=== PATIENT | female | born 1975 | race Two or more races ===

== ENCOUNTER 2017-01-02 19:05 | Emergency (ER) | payer OTHER ==
[2017-01-02 19:24] VITALS: BP 132/84; PULSE 59; TEMP 98; BMI 25.3
--- NOTE | 2017-01-02 20:45 | PDOC ---
History of Present Illness - General Chief Complaint: Pain Stated Complaint: HEAD/STOMACH PAIN Time Seen by Provider: 01/02/17 20:42 - History of Present Illness Initial Comments: 01/02/17 21:05 41-year-old female complaining of epigastric pain intermittent for the last 2 days that has not improved. Patient reports pain is worse after eating. Denies increasing pain lately. Patient reports decreased by mouth intake since pain started. Denies urinary symptoms, nausea vomiting diarrhea. Patient reports slight headache. Patient has a past medical history of hypercholesterolemia. Past History - Past Medical History Allergies/Adverse Reactions: Allergies Allergy/AdvReac Type Severity Reaction Status Date / Time No Known Allergies Allergy Verified 01/02/17 19:22 Home Medications: Ambulatory Orders Ondansetron [Ondansetron Odt] 8 mg PO TID #30 tab.rapdis 10/11/15 Oxycodone HCl/Acetaminophen [Percocet 5-325 mg Tablet] 1 tab PO Q6H #20 tablet MDD 4 10/11/15 Famotidine [Pepcid -] 20 mg PO BID #14 tablet 01/02/17 - Suicide/Smoking/Psychosocial Hx Smoking History: Never smoked Review of Systems - Review of Systems Able to Perform ROS?: Yes Is the patient limited Slovenian proficient: No Constitutional: No: Symptoms Reported, See HPI, Chills, Diaphoresis, Fever, Loss of Appetite, Malaise, Night Sweats, Weakness, Weight Stable, Unintentional Wgt. Loss, Unexplained wgt Loss, Other ABD/GI: Yes: Abdominal cramping. No: Symptoms Reported, See HPI, Abdominal Distended, Abd. Pain w/ defecation, Blood Streaked Bowels, Constipated, Diarrhea , Difficulty Swallowing, Nausea, Poor Appetite, Poor Fluid Intake, Rectal Bleeding, Vomiting, Indigestion, Tarry Stools, Other : No: Symptoms Reported, See HPI, Burning, Dysuria, Discharge, Frequency, Flank Pain, Hematuria, Incontinence, Pain, Urgency, Testicular Mass, Testicular Swelling, Lesions, Testicular Pain, Other Neurological: Yes: Headache *Physical Exam - Vital Signs Last Vital Signs Temp Pulse Resp BP Pulse Ox 98 F 59 L 18 132/84 100 01/02/17 19:22 01/02/17 19:22 01/02/17 19:22 01/02/17 19:22 01/02/17 19:22 - Physical Exam General Appearance: Yes: Appropriately Dressed Respiratory/Chest: positive: Lungs Clear, Normal Breath Sounds Cardiovascular: positive: Regular Rhythm, Regular Rate Gastrointestinal/Abdominal: positive: Normal Bowel Sounds, Tender (epigastric area), Soft Musculoskeletal: positive: Normal Inspection Extremity: positive: Normal Capillary Refill, Normal Inspection, Normal Range of Motion Integumentary: positive: Normal Color, Dry, Warm Neurologic: positive: Fully Oriented, Alert, Normal Mood/Affect Heart Score/ECG Review - ECG Intrepretation Rhythm: Regular Rhythm Comment:: 01/02/17 22:40 sinus bradycardia with sinus arrythmia: 46bpm ED Treatment Course - LABORATORY CBC & Chemistry Diagram: 01/02/17 22:00 01/02/17 22:03 Progress Note - Progress Note Progress Note: A: abdominal pain P: cbc cmp Ua urine gallbladder US: neg L renal cortical cyst. (discussed with patient) Medical Decision Making - Medical Decision Making 01/02/17 23:44 EKG: sinus bradycardia. patient reports exercising and physically active. 01/02/17 23:46 patient reports feeling better. will d/c home/. *DC/Admit/Observation/Transfer Diagnosis at time of Disposition: Gastritis Qualifiers: Gastritis type: unspecified gastritis Chronicity: acute Gastritis bleeding: without bleeding Qualified Code(s): K29.00 - Acute gastritis without bleeding; K29.00 - Acute gastritis without bleeding - Discharge Dispostion Disposition: HOME - Prescriptions Prescriptions: Famotidine [Pepcid -] 20 mg PO BID #14 tablet - Referrals Referrals: Alissa Linder MD [Primary Care Provider] - Call tomorrow - Patient Instructions Printed Discharge Instructions: DI for Gastroesophageal Reflux Disease (GERD) Additional Instructions: take pepcid as prescribed. follow up with your doctor as soon as possible. return to the ER if symptoms worsen.
[2017-01-02] MEDS ORDERED: FAMOTIDINE 20 MG/50 ML IVPB 50 ML IVPB ONE ×2 (20:57→21:56)
--- NOTE | 2017-01-02 21:20 | PDOC ---
*Physical Exam - Vital Signs Last Vital Signs Temp Pulse Resp BP Pulse Ox 98 F 59 L 18 132/84 100 01/02/17 19:22 01/02/17 19:22 01/02/17 19:22 01/02/17 19:22 01/02/17 19:22 ED Treatment Course - LABORATORY CBC & Chemistry Diagram: 01/02/17 22:00 01/02/17 22:03 Medical Decision Making - Medical Decision Making 01/03/17 07:04 I reviewed the case of the mid-level practitioner and was available for consultation while in the emergency department *DC/Admit/Observation/Transfer Diagnosis at time of Disposition: Gastritis Qualifiers: Gastritis type: unspecified gastritis Chronicity: acute Gastritis bleeding: without bleeding Qualified Code(s): K29.00 - Acute gastritis without bleeding - Discharge Dispostion Disposition: HOME - Prescriptions Prescriptions: Famotidine [Pepcid -] 20 mg PO BID #14 tablet - Referrals Referrals: Alissa Linder MD [Primary Care Provider] - Call tomorrow - Patient Instructions Printed Discharge Instructions: DI for Gastroesophageal Reflux Disease (GERD) Additional Instructions: take pepcid as prescribed. follow up with your doctor as soon as possible. return to the ER if symptoms worsen.
[2017-01-02 21:36] LABS: URINE APPEARANCE CLEAR; URINE BILIRUBIN NEGATIVE (NEGATIVE); URINE BLOOD 2+ (NEGATIVE); URINE COLOR STRAW; URINE GLUCOSE (UA) NEGATIVE (NEGATIVE); URINE KETONE NEGATIVE (NEGATIVE); URINE NITRITE NEGATIVE (NEGATIVE); URINE PROTEIN NEGATIVE (NEGATIVE); URINE UROBILINOGEN NEGATIVE mg/dL (0.2-1.0)
[2017-01-02 21:47] LABS: URINE MUCUS FEW; URINE RBC 1 /hpf (0-3); URINE WBC 1 /hpf (3-5)
[2017-01-02 22:11] LABS: BASOPHIL 1.1 % (0-2.0); EOSINOPHIL 3.3 % (0-4.5); MCH 26.9 pg (25.7-33.7); MCHC 33.5 g/dl (32.0-36.0); MEAN CELL VOLUME 80.3 fl (80-96); MEAN PLT VOLUME 8.5 fl (7.5-11.1); NEUTROPHILS 42.9 % (42.8-82.8); PLATELET COUNT 215 K/MM3 (134-434); RDW 15.2 % (11.6-15.6); WHITE BLOOD COUNT 3.2 K/mm3 (4.0-10.0)
[2017-01-02 22:35] LABS: URINE LEUK ESTERASE Negative (NEGATIVE)
[2017-01-02 22:41] LABS: ALBUMIN 3.2 g/dl (3.4-5.0); ALK PHOS 81 U/L (45-117); ANION GAP 6 (8-16); BILIRUBIN,TOTAL 0.3 mg/dL (0.2-1.0); CALCIUM 8.5 mg/dL (8.5-10.1); CO2 27 mmol/L (21-32); CREATININE 0.6 mg/dL (0.55-1.02); GLUCOSE,RANDOM 84 mg/dL (74-106); SGOT/AST 18 U/L (15-37); SGPT/ALT 16 U/L (12-78); TOT PROT 6.5 g/dl (6.4-8.2)
--- NOTE | 2017-01-03 13:51 | EKG ---
Test Reason : Blood Pressure : / mmHG Vent. Rate : 046 BPM Atrial Rate : 046 BPM P-R Int : 192 ms QRS Dur : 082 ms QT Int : 448 ms P-R-T Axes : 058 037 040 degrees QTc Int : 392 ms SINUS BRADYCARDIA WITH MARKED SINUS ARRHYTHMIA OTHERWISE NORMAL ECG NO PREVIOUS ECGS AVAILABLE CLINICAL CORRELATION IS RECOMMENDED Confirmed by KARL THURMAN MD ([id number]) on 01/03/2017 1:50:53 PM Referred By: Confirmed By:KARL THURMAN MD
== END 2017-01-03 00:17 | disposition home or self-care (01) ==
LOC: JER 19:05
PROC: 3E033GC Introduction of Other Therapeutic Substance into Peripheral Vein, Percutaneous Approach (ICD-10-PCS; principal; 2017-01-02)
DX: K29.00 Acute gastritis without bleeding (principal); E78.00 Pure hypercholesterolemia, unspecified
CPT/HCPCS: 36415; 76705-TC; 80053; 81003; 81015; 83690; 84703; 85025; 93005; 93010; 96365; 99282-25

== ENCOUNTER 2017-03-19 17:34 | Emergency (ER) | payer OTHER ==
[2017-03-19 17:37] VITALS: BP 130/82; PULSE 88; TEMP 98.5; BMI 25.3
[2017-03-19] MEDS ORDERED: KETOROLAC TROMETHAMINE 60 MG/2 ML VIAL IM ONE (18:07)
--- NOTE | 2017-03-19 18:07 | PDOC ---
History of Present Illness - General Chief Complaint: Cold Symptoms Stated Complaint: HEADACHE Time Seen by Provider: 03/19/17 18:01 History Source: Patient Exam Limitations: No Limitations - History of Present Illness Initial Comments: 03/19/17 18:01 Patient is a [41-year-old female, no significant medical history currently on no medication presents with sudden onset of generalized pain, tactile fever, headache Yesterday. Denies any nausea vomiting or diarrhea.] Past Medical History: [Denies]. Allergies: No known allergies Medications: [None] Family History: Non-contributory Social History: Denies smoking, alcohol use, or IVDU Review of Systems GENERAL/CONSTITUTIONAL: [Tactile Fever, chills. No weakness. No weight change.] HEAD, EYES, EARS, NOSE AND THROAT: [No change in vision. No ear pain or discharge. No sore throat. ] CARDIOVASCULAR: [No chest pain or shortness of breath.] RESPIRATORY: [No cough, wheezing, or hemoptysis.] GASTROINTESTINAL: [No nausea, vomiting, diarrhea or constipation. No rectal bleeding.] GENITOURINARY: [No dysuria, frequency, or change in urination.] MUSCULOSKELETAL: [No joint or muscle swelling or pain. No neck or back pain.] SKIN AND BREASTS: [No rash or easy bruising.] NEUROLOGIC: [Generalized headache, vertigo, loss of consciousness, or loss of sensation.] PSYCHIATRIC: [No depression or anxiety.] ENDOCRINE: [No increased thirst. No abnormal weight change.] HEMATOLOGIC/LYMPHATIC: [No anemia, easy bleeding, or history of blood clots.] ALLERGIC/IMMUNOLOGIC: [No hives or skin allergy. No latex allergy.] Physical Exam: GENERAL: [The patient is awake, alert, and fully oriented, in no acute distress. ] HEAD: [Normal with no signs of trauma.] EYES: [Pupils equal, round and reactive to light, extraocular movements intact, sclera anicteric, conjunctiva clear.] ENT: [Ears normal, nares patent with no inflammation, oropharynx clear without exudates. Moist mucous membranes. No uvula deviation] NECK: [Normal range of motion, supple without lymphadenopathy, JVD, or masses.] LUNGS: [Breath sounds equal, clear to auscultation bilaterally. No wheezes, and no crackles.] HEART: [Regular rate and rhythm, normal S1 and S2 without murmur, rub or gallop. ] ABDOMEN: [Soft, nontender, normoactive bowel sounds. No guarding, no rebound. No masses. No bruising or abrasions] MUSCULOSKELETAL: [Normal range of motion, no edema. No clubbing or cyanosis. No cords, erythema, or tenderness. No CVA Tenderness with fist.] NEUROLOGICAL: [Cranial nerves II through XII grossly intact. Normal speech, normal gait.] SKIN: [Warm, Dry, normal turgor, no rashes or lesions noted.] Past History - Past Medical History Allergies/Adverse Reactions: Allergies Allergy/AdvReac Type Severity Reaction Status Date / Time No Known Allergies Allergy Verified 03/19/17 17:37 Home Medications: Ambulatory Orders Oseltamivir Phosphate [Tamiflu -] 75 mg PO BID #10 capsule 03/19/17 CVA: No COPD: No DVT: No Dementia: No - Suicide/Smoking/Psychosocial Hx Smoking History: Never smoked Hx Alcohol Use: No Drug/Substance Use Hx: No Substance Use Type: None *Physical Exam - Vital Signs Last Vital Signs Temp Pulse Resp BP Pulse Ox 98.5 F 88 20 130/82 100 03/19/17 17:35 03/19/17 17:35 03/19/17 17:35 03/19/17 17:35 03/19/17 17:35 Medical Decision Making - Medical Decision Making 03/19/17 19:19 A/P: Patient here for evaluation of influenza-type illness to Tylenol prior to arrival still with headache. I have given patient Toradol 60 mg with good result influenza is negative however patient presents with clinical signs of influenza will DC patient home on Tamiflu, follow-up with PMD in 2 days if symptoms persist or worsen. If any increased headache nausea vomiting or other concerns return to ER *DC/Admit/Observation/Transfer Diagnosis at time of Disposition: Influenza-like symptoms - Discharge Dispostion Disposition: HOME Condition at time of disposition: Stable Admit: No - Prescriptions Prescriptions: Oseltamivir Phosphate [Tamiflu -] 75 mg PO BID #10 capsule - Referrals Referrals: Alissa Linder MD [Primary Care Provider] - - Patient Instructions Printed Discharge Instructions: Influenza (Alternative Therapy) Additional Instructions: Motrin as needed for headache, increase fluid intake. If headache persists, any neurological deficits, nausea vomiting, or any other concerns return immediately to ER Follow-up with primary care doctor in 2 days if symptoms persist - Post Discharge Activity Forms/Work/School Notes: Back to Work
[2017-03-19] MEDS ORDERED: KETOROLAC TROMETHAMINE 60 MG/2 ML VIAL ONE (18:10)
== END 2017-03-19 19:22 | disposition home or self-care (01) ==
LOC: JERFT 17:34
DX: J11.1 Influenza due to unidentified influenza virus with other respiratory manifestations (principal)
CPT/HCPCS: 87804; 99281-25

== ENCOUNTER 2017-12-07 17:08 | Emergency (ER) | payer OTHER ==
--- NOTE | 2017-12-07 17:29 | PDOC ---
Rapid Medical Evaluation Chief Complaint: Cold Symptoms Time Seen by Provider: 12/07/17 17:25 Medical Evaluation: Allergies Allergy/AdvReac Type Severity Reaction Status Date / Time No Known Allergies Allergy Verified 03/19/17 17:37 12/07/17 17:26 CC: Fever, cough, pain with inspiration HPI: Pt is a 42 YO female who states over the past 3 days she has had a cough, fever, myalgias. I have performed a brief in- person evaluation of this patient. Pertinent Physical Findings: Skin: Clear Lungs: Clear Heart: RRR Abdomen: pain in LUQ, no guarding Neuro: Alert Psych: Appropriate affect I have ordered: basic labs The patient will proceed to: Main ED for further evaluation Discharge Disposition - Diagnosis Respiratory illness - Referrals - Patient Instructions - Post Discharge Activity
[2017-12-07 17:32] VITALS: BP 128/78; PULSE 81; TEMP 98; BMI 26.5
[2017-12-07] MEDS ORDERED: ALBUTEROL SO4 2.5/IPRATROPIUM 0.5 INH SOL 3 ML VIAL.NEB. NEB ONE ×2 (18:36→18:38)
[2017-12-07] MEDS ORDERED: ACETAMINOPHEN 500 MG TABLET (FP) PO ONE (18:36)
--- NOTE | 2017-12-07 18:36 | PDOC ---
History of Present Illness - General Chief Complaint: Cold Symptoms Stated Complaint: PAIN Time Seen by Provider: 12/07/17 17:25 Past History - Past Medical History Allergies/Adverse Reactions: Allergies Allergy/AdvReac Type Severity Reaction Status Date / Time No Known Allergies Allergy Verified 12/07/17 17:26 Home Medications: Ambulatory Orders Ibuprofen 600 mg PO Q6H #30 tablet 12/07/17 CVA: No COPD: No DVT: No Dementia: No - Immunization History Immunization Up to Date: Yes - Suicide/Smoking/Psychosocial Hx Smoking History: Never smoked Have you smoked in the past 12 months: No Hx Alcohol Use: No Drug/Substance Use Hx: No Substance Use Type: None *Physical Exam - Vital Signs Last Vital Signs Temp Pulse Resp BP Pulse Ox 98.0 F 81 16 128/78 98 12/07/17 17:26 12/07/17 17:26 12/07/17 17:26 12/07/17 17:26 12/07/17 17:26 *DC/Admit/Observation/Transfer Diagnosis at time of Disposition: Upper respiratory infection Qualifiers: URI type: unspecified viral URI Qualified Code(s): J06.9 - Acute upper respiratory infection, unspecified - Discharge Dispostion Disposition: HOME Condition at time of disposition: Stable Decision to Admit order: No - Referrals Referrals: Alissa Linder MD [Primary Care Provider] - - Patient Instructions Printed Discharge Instructions: DI for Viral Upper Respiratory Infection -- Adult Additional Instructions: You have an upper respiratory infection, or the common cold. Please take Motrin 600 mg every 8 hours as needed for pain not to exceed 3000 mg a day. Drink plenty of fluids. Eat banana's, apple sauce, toast and rice to help with your diarrhea. Cough drops and warm tea may help your symptoms as well. Please follow up with her primary care doctor this week. Return to the emergency department if you have difficulty breathing, shortness of breath, worsening pain, nausea, vomiting or if you have any changes in your symptoms. - Post Discharge Activity Forms/Work/School Notes: Back to Work
[2017-12-07] MEDS ORDERED: ACETAMINOPHEN 500 MG TABLET (FP) ONE (18:38)
== END 2017-12-07 19:21 | disposition home or self-care (01) ==
LOC: JERFT 17:08 → JER 17:08 → JERFT 19:21
PROC: 3E0F7GC Introduction of Other Therapeutic Substance into Respiratory Tract, Via Natural or Artificial Opening (ICD-10-PCS; principal; 2017-12-07)
DX: J06.9 Acute upper respiratory infection, unspecified (principal); B97.89 Other viral agents as the cause of diseases classified elsewhere
CPT/HCPCS: 99281-25; J7620

== ENCOUNTER → 2021-10-29 | Day surgery (SDC) | payer OTHER | END | disposition home or self-care (01) | LOC: FRADUS-SUR 10:52 | PROVIDERS: ATTEND Surgery | PROC: 0HBU3ZX Excision of Left Breast, Percutaneous Approach, Diagnostic (ICD-10-PCS; principal; 2021-10-29) | DX: N60.12 Diffuse cystic mastopathy of left breast (principal); N63.20 Unspecified lump in the left breast, unspecified quadrant; Z85.3 Personal history of malignant neoplasm of breast | CPT/HCPCS: 19085; 77065-TC; 88305-TC; A4648; A9579; C1887 ==

== ENCOUNTER 2021-11-16 05:17 | Day surgery (SDC) | payer OTHER ==
[2021-11-12 13:48] VITALS: BMI 28.0
[2021-11-16] MEDS ORDERED: PROPOFOL 20 ML ONE (14:37)
[2021-11-16] MEDS ORDERED: MIDAZOLAM HCL 2 MG/2 ML SINGLE DOSE VIAL ONE ×2 (14:37→14:42)
[2021-11-16] MEDS ORDERED: LIDOCAINE HCL/PF 2% SDV 5ML VIAL ONE (14:39)
[2021-11-16] MEDS ORDERED: PROPOFOL 40 ML ONE (15:46)
[2021-11-16] MEDS ORDERED: ceFAZolin SODIUM 1 GM VIAL ONE (15:47)
[2021-11-16] MEDS ORDERED: DEXAMETHASONE SOD PHOSPHATE 4 MG/1 ML VIAL ONE (15:50)
[2021-11-16] MEDS ORDERED: ceFAZolin SODIUM 1 GM VIAL IVPB ONE (15:50)
[2021-11-16] MEDS ORDERED: LIDOCAINE HCL 1%, 10 MG/ML (20ML VIAL) NR ONE ×2 (15:56)
[2021-11-16] MEDS ORDERED: KETOROLAC TROMETHAMINE 30 MG/1 ML VIAL ONE (16:07)
[2021-11-16] MEDS ORDERED: PROMETHAZINE HCL 25 MG/1 ML VIAL IVPUSH PRN (16:23)
[2021-11-16] MEDS ORDERED: oxyCODONE HCL 5 MG TABLET PO PRN ×2 (16:23)
[2021-11-16] MEDS ORDERED: ONDANSETRON 4 MG/2 ML VIAL IVPUSH PRN (16:23)
[2021-11-16] MEDS ORDERED: LACTATED RINGERS SOLUTION 1,000 ML IV SCH (16:30)
[2021-11-16] MEDS ORDERED: hydrALAZINE HCL 20 MG/ML VIAL IVPUSH PRN (16:48)
[2021-11-16] MEDS ORDERED: hydrALAZINE HCL 20 MG/ML VIAL ONE (17:04)
[2021-11-16 17:56] VITALS: RESP 18; TEMP 98
[2021-11-16 18:36] VITALS: BP 139/87; PULSE 91
== END 2021-11-16 18:36 | disposition home or self-care (01) ==
LOC: JASU-SURG 05:17
PROVIDERS: ATTEND Surgery
PROC: B518ZZA Fluoroscopy of Superior Vena Cava, Guidance (ICD-10-PCS; 2021-11-16)
PROC: 02HV33Z Insertion of Infusion Device into Superior Vena Cava, Percutaneous Approach (ICD-10-PCS; principal; 2021-11-16 14:30)
DX: C50.411 Malignant neoplasm of upper-outer quadrant of right female breast (principal)
CPT/HCPCS: 36561; 77001; C1788; 76000-TC-FY; 81025; 94760; J1644

== ENCOUNTER 2022-05-09 04:25 | Inpatient (IN) | payer OTHER ==
[2022-05-04 15:49] VITALS: BMI 27.4
[2022-05-09] MEDS ORDERED: ISOSULFAN BLUE 50 MG/5 ML VIAL SQ ONE (08:29)
[2022-05-09] MEDS ORDERED: PROPOFOL 20 ML ONE (09:29)
[2022-05-09] MEDS ORDERED: ROCURONIUM BROMIDE 50 MG/5 ML SYRINGE ONE (09:30)
[2022-05-09] MEDS ORDERED: MIDAZOLAM HCL 2 MG/2 ML SINGLE DOSE VIAL ONE (09:30)
[2022-05-09] MEDS ORDERED: ceFAZolin SODIUM 1 GM VIAL IVPB ONE (10:15)
[2022-05-09] MEDS ORDERED: ACETAMINOPHEN 500 MG TABLET (FP) PO PRN (11:11)
[2022-05-09] MEDS ORDERED: ONDANSETRON 4 MG/2 ML VIAL IVPB PRN (11:11)
[2022-05-09] MEDS ORDERED: ALPRAZolam 1 MG TABLET PO ONE (11:11)
[2022-05-09] MEDS ORDERED: HYDROmorphone *PCA* 10MG/50ML DISP.SYRIN PCA SCH ×2 (11:15→15:30)
[2022-05-09] MEDS ORDERED: LACTATED RINGERS SOLUTION 1,000 ML/1,000 ML INFUS.BAG IV SCH (11:15)
[2022-05-09] MEDS ORDERED: ACETAMINOPHEN 325 MG TABLET (FP) PO PRN ×2 (11:30)
[2022-05-09] MEDS ORDERED: oxyCODONE HCL 5 MG TABLET PO PRN ×2 (11:30)
[2022-05-09] MEDS ORDERED: DEXAMETHASONE SOD PHOSPHATE 10 MG/1 ML VIAL ONE (11:56)
[2022-05-09] MEDS: HYDROmorphone HCl 2 MG/ML VIAL ONE ×2 (12:20→12:35)
[2022-05-09] MEDS ORDERED: ONDANSETRON 4 MG/2 ML VIAL IVPUSH PRN (12:24)
[2022-05-09] MEDS ORDERED: ACETAMINOPHEN 1000 MG/100 ML BAG IVPB ONE (12:25)
[2022-05-09] MEDS ORDERED: HYDROmorphone HCl 2 MG/ML VIAL IVPUSH ONE (12:30)
[2022-05-09] MEDS ORDERED: LACTATED RINGERS SOLUTION 1,000 ML IV SCH (12:30)
[2022-05-09] MEDS ORDERED: HYDROmorphone *PCA* 10MG/50ML DISP.SYRIN ONE (12:48)
[2022-05-09] MEDS ORDERED: ACETAMINOPHEN INJECTION 100 ML IVPB ONE (16:52)
[2022-05-09] MEDS ORDERED: ONDANSETRON 4 MG/2 ML VIAL ONE (16:52)
[2022-05-09] MEDS ORDERED: ceFAZolin SODIUM 1 GM VIAL ONE (17:53)
[2022-05-09] MEDS: CEFAZOLIN 1 GM in DEXTROSE 5%-WATER - 50 ML IVPB SCH (18:00)
[2022-05-10] MEDS ORDERED: CEFAZOLIN 1 GM in DEXTROSE 5%-WATER - 50 ML IVPB SCH (02:46)
[2022-05-10 02:49] VITALS: RESP 20
[2022-05-10] MEDS: CEFAZOLIN 1 GM in DEXTROSE 5%-WATER - 50 ML IVPB SCH ×3 (02:56→09:38)
[2022-05-10 15:14] VITALS: BP 132/79; PULSE 83; TEMP 98.5
== END 2022-05-10 16:03 | disposition home health service (06) | DRG 362 ==
LOC: J2C 04:25 → EDSTATUS 08:30 → J8W 18:48
PROVIDERS: ADMIT Surgery; ATTEND Surgery
PROC: 0HTT0ZZ Resection of Right Breast, Open Approach (ICD-10-PCS; principal; 2022-05-09 09:30)
PROC: 0HUT0JZ Supplement Right Breast with Synthetic Substitute, Open Approach (ICD-10-PCS; 2022-05-09 09:30)
PROC: 07B50ZX Excision of Right Axillary Lymphatic, Open Approach, Diagnostic (ICD-10-PCS; 2022-05-09 09:30)
DX: C50.911 Malignant neoplasm of unspecified site of right female breast (principal); G43.909 Migraine, unspecified, not intractable, without status migrainosus
CPT/HCPCS: 78195-TC; 81025; 86850; 86900; 86901; 88307-TC; 88331-TC; 94760; A9541; C1789; J1100; Q4116

== ENCOUNTER 2022-06-02 08:20 | Day surgery (SDC) | payer OTHER ==
[2022-06-02] MEDS ORDERED: SODIUM CHLORIDE IVPB ONE (09:00)
[2022-06-02] MEDS ORDERED: TRASTUZUMAB ANNS IVPB ONE (09:00)
[2022-06-02 09:27] LABS: BASO % 0.7 % (0-2.0); EOS % 2.3 % (0-4.5); HEMATOCRIT 32.5 % (32.4-45.2); HEMOGLOBIN 11.2 GM/dL (10.7-15.3); LYMPH % 44.4 % (8-40); MCH 31.2 pg (25.7-33.7); MCHC 34.5 g/dl (32.0-36.0); MEAN CELL VOLUME 90.7 fl (80-96); MONO % 10.8 % (3.8-10.2); NEUT % 41.8 % (42.8-82.8); PLATELET COUNT 232 10^3/uL (134-434); RBC 3.59 M/mm3 (3.60-5.2); RDW 13.3 % (11.6-15.6); WHITE BLOOD COUNT 2.6 K/mm3 (4.0-10.0)
[2022-06-02 10:02] LABS: BLOOD UREA NITROGEN 15.7 mg/dL (7-18); CALCIUM 9.2 mg/dL (8.5-10.1)
[2022-06-02 10:03] LABS: ALBUMIN 3.6 g/dl (3.4-5.0)
[2022-06-02 10:05] LABS: BILIRUBIN,DIRECT 0.1 mg/dL (0.0-0.2); CREATININE 0.7 mg/dL (0.55-1.3)
[2022-06-02 10:07] LABS: BILIRUBIN,TOTAL 0.3 mg/dL (0.2-1); TOT PROT 7.2 g/dl (6.4-8.2)
[2022-06-02 16:21] VITALS: BP 136/85; PULSE 75; RESP 20; TEMP 98.2
[2022-06-02] MEDS ORDERED: PORTA CATH FLUSH 10 ML IVPUSH PRN (16:21)
== END 2022-06-02 12:30 | disposition home or self-care (01) ==
LOC: JONCCHEMO 08:20
PROVIDERS: ATTEND Internal Medicine Hematology & Oncology
DX: Z51.11 Encounter for antineoplastic chemotherapy (principal); C50.919 Malignant neoplasm of unspecified site of unspecified female breast; Z17.0 Estrogen receptor positive status [ER+]
CPT/HCPCS: 36415; 80048; 80076; 84703; 85025; 96413; Q5117

== ENCOUNTER 2022-06-23 08:47 | Day surgery (SDC) | payer OTHER ==
[2022-06-23 09:53] LABS: BASO % 1.2 % (0-2.0); EOS % 2.1 % (0-4.5); HEMATOCRIT 33.7 % (32.4-45.2); LYMPH % 51.8 % (8-40); MCH 31.1 pg (25.7-33.7); MCHC 35.6 g/dl (32.0-36.0); MEAN CELL VOLUME 87.5 fl (80-96); MEAN PLT VOLUME 7.6 fl (7.5-11.1); MONO % 12.8 % (3.8-10.2); NEUT % 32.1 % (42.8-82.8); PLATELET COUNT 236 10^3/uL (134-434); RBC 3.85 M/mm3 (3.60-5.2); WHITE BLOOD COUNT 2.6 K/mm3 (4.0-10.0)
[2022-06-23 09:58] LABS: ALBUMIN 3.6 g/dl (3.4-5.0); BLOOD UREA NITROGEN 16.7 mg/dL (7-18); CALCIUM 9.4 mg/dL (8.5-10.1)
[2022-06-23] MEDS ORDERED: TRASTUZUMAB-ANNS 410 MG in SODIUM CHLORIDE 250 ML IVPB ONE (10:00)
[2022-06-23 10:01] LABS: BILIRUBIN,DIRECT 0.1 mg/dL (0.0-0.2); CREATININE 0.8 mg/dL (0.55-1.3)
[2022-06-23 10:02] LABS: BILIRUBIN,TOTAL 0.8 mg/dL (0.2-1); TOT PROT 7.2 g/dl (6.4-8.2)
[2022-06-23 10:52] VITALS: BP 149/87; PULSE 94; RESP 20; TEMP 98.5
[2022-06-23] MEDS ORDERED: PORTA CATH FLUSH 10 ML IVPUSH PRN (10:52)
== END 2022-06-23 11:00 | disposition home or self-care (01) ==
LOC: JONCCHEMO 08:47
PROVIDERS: ATTEND Internal Medicine Hematology & Oncology
DX: Z53.8 Procedure and treatment not carried out for other reasons (principal)
CPT/HCPCS: 36415; 80048; 80076; 85025; 96365

== ENCOUNTER 2022-06-30 09:50 | Day surgery (SDC) | payer OTHER ==
[2022-06-30 10:41] LABS: BASO % 0.8 % (0-2.0); HEMATOCRIT 35.6 % (32.4-45.2); HEMOGLOBIN 12.4 GM/dL (10.7-15.3); LYMPH % 50.8 % (8-40); MCH 30.5 pg (25.7-33.7); MCHC 34.9 g/dl (32.0-36.0); MEAN CELL VOLUME 87.5 fl (80-96); MEAN PLT VOLUME 7.7 fl (7.5-11.1); MONO % 10.9 % (3.8-10.2); NEUT % 35.5 % (42.8-82.8); PLATELET COUNT 221 10^3/uL (134-434); RBC 4.07 M/mm3 (3.60-5.2); RDW 12.8 % (11.6-15.6); WHITE BLOOD COUNT 2.6 K/mm3 (4.0-10.0)
[2022-06-30 10:58] LABS: BLOOD UREA NITROGEN 14.4 mg/dL (7-18); CALCIUM 9.7 mg/dL (8.5-10.1)
[2022-06-30 10:59] LABS: ALBUMIN 3.7 g/dl (3.4-5.0)
[2022-06-30 11:01] LABS: BILIRUBIN,DIRECT 0.1 mg/dL (0.0-0.2)
[2022-06-30 11:02] LABS: CREATININE 0.8 mg/dL (0.55-1.3)
[2022-06-30 11:03] LABS: BILIRUBIN,TOTAL 0.4 mg/dL (0.2-1); TOT PROT 7.5 g/dl (6.4-8.2)
[2022-06-30] MEDS ORDERED: TRASTUZUMAB-ANNS 410 MG in SODIUM CHLORIDE 250 ML IVPB ONE (12:00)
[2022-06-30 15:43] VITALS: TEMP 97.6
[2022-06-30 15:50] VITALS: BP 124/82; PULSE 77; RESP 19
[2022-06-30] MEDS ORDERED: PORTA CATH FLUSH 10 ML IVPUSH PRN (15:50)
== END 2022-06-30 12:50 | disposition home or self-care (01) ==
LOC: JONCCHEMO 09:50
PROVIDERS: ATTEND Internal Medicine Hematology & Oncology
DX: Z51.11 Encounter for antineoplastic chemotherapy (principal); C50.919 Malignant neoplasm of unspecified site of unspecified female breast; Z17.0 Estrogen receptor positive status [ER+]
CPT/HCPCS: 36415; 80048; 80076; 85025; 96413; Q5117

== ENCOUNTER 2022-07-21 08:58 | Day surgery (SDC) | payer OTHER ==
[2022-07-21 09:45] LABS: BASO % 0.7 % (0-2.0); EOS % 2.4 % (0-4.5); HEMATOCRIT 34.6 % (32.4-45.2); HEMOGLOBIN 12.2 GM/dL (10.7-15.3); LYMPH % 50.1 % (8-40); MCH 30.2 pg (25.7-33.7); MCHC 35.2 g/dl (32.0-36.0); MEAN CELL VOLUME 85.8 fl (80-96); MEAN PLT VOLUME 7.8 fl (7.5-11.1); MONO % 9.6 % (3.8-10.2); NEUT % 37.2 % (42.8-82.8); PLATELET COUNT 219 10^3/uL (134-434); RBC 4.04 M/mm3 (3.60-5.2); RDW 13.5 % (11.6-15.6); WHITE BLOOD COUNT 3.4 K/mm3 (4.0-10.0)
[2022-07-21] MEDS ORDERED: TRASTUZUMAB-ANNS 410 MG in SODIUM CHLORIDE 250 ML IVPB ONE (10:00)
[2022-07-21 10:05] LABS: POTASSIUM 4.1 mmol/L (3.5-5.1)
[2022-07-21 10:07] LABS: ALBUMIN 3.7 g/dl (3.4-5.0); CALCIUM 9.3 mg/dL (8.5-10.1)
[2022-07-21 10:08] LABS: BLOOD UREA NITROGEN 15.2 mg/dL (7-18)
[2022-07-21 10:10] LABS: BILIRUBIN,DIRECT 0.1 mg/dL (0.0-0.2); CREATININE 0.8 mg/dL (0.55-1.3)
[2022-07-21 10:12] LABS: BILIRUBIN,TOTAL 0.3 mg/dL (0.2-1); TOT PROT 7.3 g/dl (6.4-8.2)
[2022-07-21 14:57] VITALS: BP 144/99; PULSE 81; RESP 20; TEMP 98.2
[2022-07-21] MEDS ORDERED: PORTA CATH FLUSH 10 ML IVPUSH PRN (14:57)
== END 2022-07-21 12:00 | disposition home or self-care (01) ==
LOC: J7W 08:58 → JONCCHEMO 08:58
PROVIDERS: ATTEND Internal Medicine Hematology & Oncology
DX: Z51.11 Encounter for antineoplastic chemotherapy (principal); C50.911 Malignant neoplasm of unspecified site of right female breast; Z17.0 Estrogen receptor positive status [ER+]
CPT/HCPCS: 36415; 80048; 80076; 85025; 96413; Q5117

== ENCOUNTER 2022-08-11 08:57 | Day surgery (SDC) | payer OTHER ==
[2022-08-11 09:15] LABS: BASO % 1.2 % (0-2.0); EOS % 5.9 % (0-4.5); HEMATOCRIT 37.9 % (32.4-45.2); HEMOGLOBIN 12.6 GM/dL (10.7-15.3); LYMPH % 49.1 % (8-40); MCH 28.3 pg (25.7-33.7); MCHC 33.2 g/dl (32.0-36.0); MEAN CELL VOLUME 85.1 fl (80-96); MEAN PLT VOLUME 7.3 fl (7.5-11.1); MONO % 8.7 % (3.8-10.2); NEUT % 35.1 % (42.8-82.8); PLATELET COUNT 226 10^3/uL (134-434); RBC 4.45 M/mm3 (3.60-5.2); RDW 13.9 % (11.6-15.6); WHITE BLOOD COUNT 3.5 K/mm3 (4.0-10.0)
[2022-08-11 09:41] LABS: POTASSIUM 4.2 mmol/L (3.5-5.1)
[2022-08-11 09:44] LABS: ALBUMIN 3.6 g/dl (3.4-5.0); BLOOD UREA NITROGEN 14.4 mg/dL (7-18); CALCIUM 9.2 mg/dL (8.5-10.1)
[2022-08-11 09:47] LABS: BILIRUBIN,DIRECT 0.1 mg/dL (0.0-0.2); CREATININE 0.7 mg/dL (0.55-1.3)
[2022-08-11 09:48] LABS: BILIRUBIN,TOTAL 0.2 mg/dL (0.2-1); TOT PROT 7.1 g/dl (6.4-8.2)
[2022-08-11] MEDS ORDERED: TRASTUZUMAB-ANNS 410 MG in SODIUM CHLORIDE 250 ML IVPB ONE (10:00)
[2022-08-11] MEDS ORDERED: PORTA CATH FLUSH 10 ML IVPUSH PRN (16:23)
[2022-08-11 16:24] VITALS: BP 126/59; PULSE 62; RESP 0; TEMP 97.7
== END 2022-08-11 12:01 | disposition home or self-care (01) ==
LOC: JONCCHEMO 08:57 → J7W 08:57 → JONCCHEMO 12:01
PROVIDERS: ATTEND Internal Medicine Hematology & Oncology
DX: Z51.11 Encounter for antineoplastic chemotherapy (principal); C50.911 Malignant neoplasm of unspecified site of right female breast
CPT/HCPCS: 36415; 80048; 80076; 85025; 96413; Q5117

== ENCOUNTER 2022-09-01 08:47 | Day surgery (SDC) | payer OTHER ==
[2022-09-01 09:02] LABS: BASO % 1.1 % (0-2.0); EOS % 5.5 % (0-4.5); HEMATOCRIT 36.5 % (32.4-45.2); HEMOGLOBIN 12.6 GM/dL (10.7-15.3); MCHC 34.5 g/dl (32.0-36.0); MEAN CELL VOLUME 84.1 fl (80-96); MEAN PLT VOLUME 7.2 fl (7.5-11.1); MONO % 10.3 % (3.8-10.2); NEUT % 41.1 % (42.8-82.8); PLATELET COUNT 202 10^3/uL (134-434); RBC 4.35 M/mm3 (3.60-5.2); RDW 14.3 % (11.6-15.6); WHITE BLOOD COUNT 3.2 K/mm3 (4.0-10.0)
[2022-09-01 09:35] LABS: POTASSIUM 4.2 mmol/L (3.5-5.1)
[2022-09-01 09:38] LABS: BLOOD UREA NITROGEN 16.8 mg/dL (7-18)
[2022-09-01 09:39] LABS: ALBUMIN 3.5 g/dl (3.4-5.0)
[2022-09-01 09:41] LABS: BILIRUBIN,DIRECT 0.1 mg/dL (0.0-0.2); CREATININE 0.8 mg/dL (0.55-1.3)
[2022-09-01 09:42] LABS: BILIRUBIN,TOTAL 0.2 mg/dL (0.2-1); CALCIUM 9.5 mg/dL (8.5-10.1); TOT PROT 7.2 g/dl (6.4-8.2)
[2022-09-01] MEDS ORDERED: TRASTUZUMAB-ANNS 410 MG in SODIUM CHLORIDE 250 ML IVPB ONE (10:00)
[2022-09-01 15:55] VITALS: TEMP 98.6
[2022-09-01] MEDS ORDERED: PORTA CATH FLUSH 10 ML IVPUSH PRN (15:58)
[2022-09-01 15:59] VITALS: BP 139/92; PULSE 58; RESP 20
== END 2022-09-01 11:30 | disposition home or self-care (01) ==
LOC: JONCCHEMO 08:47 → J7W 08:48 → JONCCHEMO 11:30
PROVIDERS: ATTEND Internal Medicine Hematology & Oncology
DX: Z51.11 Encounter for antineoplastic chemotherapy (principal); C50.911 Malignant neoplasm of unspecified site of right female breast; Z17.0 Estrogen receptor positive status [ER+]
CPT/HCPCS: 36415; 80048; 80076; 85025; 96413; Q5117

== ENCOUNTER 2022-10-13 08:52 | Day surgery (SDC) | payer OTHER ==
[2022-10-13] MEDS ORDERED: TRASTUZUMAB-ANNS 410 MG in SODIUM CHLORIDE 250 ML IVPB ONE (10:00)
[2022-10-13 10:03] LABS: BASO % 1.1 % (0-2.0); EOS % 3.3 % (0-4.5); HEMATOCRIT 35.9 % (32.4-45.2); LYMPH % 43.4 % (8-40); MCH 29.4 pg (25.7-33.7); MCHC 33.5 g/dl (32.0-36.0); MEAN CELL VOLUME 87.6 fl (80-96); MEAN PLT VOLUME 8.7 fl (7.5-11.1); MONO % 9.8 % (3.8-10.2); NEUT % 42.4 % (42.8-82.8); PLATELET COUNT 210 10^3/uL (134-434); POTASSIUM 4.4 mmol/L (3.5-5.1); WHITE BLOOD COUNT 2.9 K/mm3 (4.0-10.0)
[2022-10-13 10:05] LABS: BLOOD UREA NITROGEN 14.7 mg/dL (7-18); CALCIUM 8.8 mg/dL (8.5-10.1)
[2022-10-13 10:06] LABS: ALBUMIN 3.4 g/dl (3.4-5.0)
[2022-10-13 10:09] LABS: BILIRUBIN,DIRECT 0.1 mg/dL (0.0-0.2); CREATININE 0.8 mg/dL (0.55-1.3)
[2022-10-13 10:11] LABS: BILIRUBIN,TOTAL 0.2 mg/dL (0.2-1); TOT PROT 6.8 g/dl (6.4-8.2)
[2022-10-13 10:52] VITALS: TEMP 98.5
[2022-10-13 16:46] VITALS: BP 126/86; PULSE 59; RESP 18
[2022-10-13] MEDS ORDERED: PORTA CATH FLUSH 10 ML IVPUSH PRN (16:46)
== END 2022-10-13 11:25 | disposition home or self-care (01) ==
LOC: JONCCHEMO 08:52 → J7W 08:53 → JONCCHEMO 11:25
PROVIDERS: ATTEND Internal Medicine Hematology & Oncology
DX: Z51.11 Encounter for antineoplastic chemotherapy (principal); C50.911 Malignant neoplasm of unspecified site of right female breast; Z17.0 Estrogen receptor positive status [ER+]
CPT/HCPCS: 36415; 80048; 80076; 85025; 96413; Q5117

== ENCOUNTER 2022-11-03 08:43 | Day surgery (SDC) | payer OTHER ==
[2022-11-03 09:35] LABS: BASO % 0.8 % (0-2.0); EOS % 2.6 % (0-4.5); HEMOGLOBIN 12.1 GM/dL (10.7-15.3); LYMPH % 40.2 % (8-40); MCHC 34.5 g/dl (32.0-36.0); MEAN PLT VOLUME 7.5 fl (7.5-11.1); MONO % 7.7 % (3.8-10.2); NEUT % 48.7 % (42.8-82.8); PLATELET COUNT 208 10^3/uL (134-434); RBC 4.03 M/mm3 (3.60-5.2); RDW 14.8 % (11.6-15.6); WHITE BLOOD COUNT 3.2 K/mm3 (4.0-10.0)
[2022-11-03] MEDS ORDERED: TRASTUZUMAB-ANNS 410 MG in SODIUM CHLORIDE 250 ML IVPB ONE (10:00)
[2022-11-03 10:11] LABS: POTASSIUM 3.7 mmol/L (3.5-5.1)
[2022-11-03 10:13] LABS: CALCIUM 8.5 mg/dL (8.5-10.1)
[2022-11-03 10:14] LABS: ALBUMIN 3.2 g/dl (3.4-5.0)
[2022-11-03 10:17] LABS: BILIRUBIN,DIRECT 0.1 mg/dL (0.0-0.2); CREATININE 0.8 mg/dL (0.55-1.3)
[2022-11-03 10:19] LABS: BILIRUBIN,TOTAL 0.2 mg/dL (0.2-1); TOT PROT 6.8 g/dl (6.4-8.2)
[2022-11-03 14:56] VITALS: BP 139/83; PULSE 65; RESP 20; TEMP 98.5
[2022-11-03] MEDS ORDERED: PORTA CATH FLUSH 10 ML IVPUSH PRN (14:56)
== END 2022-11-03 11:45 | disposition home or self-care (01) ==
LOC: JONCCHEMO 08:43 → J7W 08:45 → JONCCHEMO 11:45
PROVIDERS: ATTEND Internal Medicine Hematology & Oncology
DX: Z51.11 Encounter for antineoplastic chemotherapy (principal); C50.911 Malignant neoplasm of unspecified site of right female breast; Z17.0 Estrogen receptor positive status [ER+]
CPT/HCPCS: 36415; 80048; 80076; 85025; 96413; Q5117

== ENCOUNTER 2022-12-15 09:47 | Day surgery (SDC) | payer OTHER ==
[2022-12-15] MEDS ORDERED: TRASTUZUMAB-ANNS 410 MG in SODIUM CHLORIDE 250 ML IVPB ONE (10:00)
[2022-12-15 10:18] LABS: BASO % 1.3 % (0-2.0); EOS % 2.4 % (0-4.5); HEMATOCRIT 35.4 % (32.4-45.2); HEMOGLOBIN 12.4 GM/dL (10.7-15.3); LYMPH % 49.2 % (8-40); MCH 30.7 pg (25.7-33.7); MCHC 35.1 g/dl (32.0-36.0); MEAN CELL VOLUME 87.5 fl (80-96); MEAN PLT VOLUME 7.7 fl (7.5-11.1); MONO % 9.7 % (3.8-10.2); NEUT % 37.4 % (42.8-82.8); PLATELET COUNT 213 10^3/uL (134-434); RBC 4.05 M/mm3 (3.60-5.2); RDW 13.3 % (11.6-15.6); WHITE BLOOD COUNT 2.8 K/mm3 (4.0-10.0)
[2022-12-15 10:39] LABS: ALBUMIN 3.4 g/dl (3.4-5.0); BLOOD UREA NITROGEN 15.2 mg/dL (7-18); CALCIUM 8.9 mg/dL (8.5-10.1)
[2022-12-15 10:41] LABS: CREATININE 0.8 mg/dL (0.55-1.3)
[2022-12-15 10:42] LABS: BILIRUBIN,DIRECT 0.1 mg/dL (0.0-0.2)
[2022-12-15 10:44] LABS: BILIRUBIN,TOTAL 0.2 mg/dL (0.2-1); TOT PROT 7.1 g/dl (6.4-8.2)
[2022-12-15 11:41] LABS: POTASSIUM 4.4 mmol/L (3.5-5.1)
[2022-12-15 17:35] VITALS: BP 133/91; PULSE 60; RESP 18; TEMP 98
[2022-12-15] MEDS ORDERED: PORTA CATH FLUSH 10 ML IVPUSH PRN (17:35)
== END 2022-12-15 12:40 | disposition home or self-care (01) ==
LOC: JONCCHEMO 09:47 → J7W 09:49 → JONCCHEMO 12:40
PROVIDERS: ATTEND Internal Medicine Hematology & Oncology
DX: Z51.11 Encounter for antineoplastic chemotherapy (principal); C50.911 Malignant neoplasm of unspecified site of right female breast; Z17.0 Estrogen receptor positive status [ER+]
CPT/HCPCS: 36415; 80048; 80076; 85025; 96413; Q5117

== ENCOUNTER 2023-01-05 10:25 | Day surgery (SDC) | payer OTHER ==
[~2023-01-05 10:25] MED LIST: TRASTUZUMAB-ANNS 410 MG in SODIUM CHLORIDE 250 ML IVPB ONE
[2023-01-05 10:31] LABS: BASO % 1.2 % (0-2.0); EOS % 1.6 % (0-4.5); HEMATOCRIT 36.1 % (32.4-45.2); HEMOGLOBIN 12.2 GM/dL (10.7-15.3); MCH 30.1 pg (25.7-33.7); MCHC 33.8 g/dl (32.0-36.0); MEAN CELL VOLUME 88.9 fl (80-96); MEAN PLT VOLUME 7.8 fl (7.5-11.1); MONO % 8.2 % (3.8-10.2); PLATELET COUNT 213 10^3/uL (134-434); RBC 4.06 M/mm3 (3.60-5.2); RDW 12.6 % (11.6-15.6); WHITE BLOOD COUNT 4.1 K/mm3 (4.0-10.0)
[2023-01-05 11:08] LABS: POTASSIUM 4.2 mmol/L (3.5-5.1)
[2023-01-05 11:10] LABS: ALBUMIN 3.3 g/dl (3.4-5.0); BLOOD UREA NITROGEN 14.7 mg/dL (7-18); CALCIUM 8.7 mg/dL (8.5-10.1)
[2023-01-05 11:12] LABS: BILIRUBIN,DIRECT 0.1 mg/dL (0.0-0.2)
[2023-01-05 11:14] LABS: CREATININE 0.7 mg/dL (0.55-1.3); TOT PROT 6.8 g/dl (6.4-8.2)
[2023-01-05 11:15] LABS: BILIRUBIN,TOTAL 0.2 mg/dL (0.2-1)
[2023-01-05 15:02] VITALS: BP 123/89; PULSE 68; RESP 18; TEMP 98.3
[2023-01-05] MEDS ORDERED: PORTA CATH FLUSH 10 ML IVPUSH PRN (15:03)
== END 2023-01-05 13:10 | disposition home or self-care (01) ==
LOC: JONCCHEMO 10:25 → J7W 10:26 → JONCCHEMO 13:10
PROVIDERS: ATTEND Internal Medicine Hematology & Oncology
DX: Z51.11 Encounter for antineoplastic chemotherapy (principal); C50.411 Malignant neoplasm of upper-outer quadrant of right female breast; Z17.0 Estrogen receptor positive status [ER+]
CPT/HCPCS: 36415; 80048; 80076; 85025; 96413; Q5117

== ENCOUNTER 2023-12-08 10:55 | Day surgery (SDC) | payer OTHER ==
[2023-12-08 10:00] LABS: BASO % 0.7 % (0-2.0); EOS % 2.5 % (0-4.5); HEMATOCRIT 36.4 % (32.4-45.2); HEMOGLOBIN 12.4 GM/dL (10.7-15.3); LYMPH % 50.1 % (8-40); MCH 29.4 pg (25.7-33.7); MCHC 33.9 g/dl (32.0-36.0); MEAN CELL VOLUME 86.7 fl (80-96); MEAN PLT VOLUME 8.1 fl (7.5-11.1); MONO % 10.3 % (3.8-10.2); NEUT % 36.4 % (42.8-82.8); PLATELET COUNT 201 10^3/uL (134-434); RDW 13.6 % (11.6-15.6); WHITE BLOOD COUNT 2.8 K/mm3 (4.0-10.0)
[2023-12-08 10:33] LABS: CHLORIDE 109 mmol/L (98-107); SODIUM 141 mmol/L (136-145)
[2023-12-08 10:36] LABS: ALBUMIN 3.2 g/dl (3.4-5.0); CALCIUM 9.1 mg/dL (8.5-10.1)
[2023-12-08 10:37] LABS: ANION GAP 4 mmol/L (4-13); BLOOD UREA NITROGEN 11.8 mg/dL (7-18); CO2 29 mmol/L (21-32); GLUCOSE,RANDOM 100 mg/dL (74-106)
[2023-12-08 10:38] LABS: BILIRUBIN,DIRECT 0.1 mg/dL (0.0-0.2); SGPT/ALT 17 U/L (13-61)
[2023-12-08 10:39] LABS: CREATININE 0.8 mg/dL (0.55-1.3); SGOT/AST 18 U/L (15-37)
[2023-12-08 10:41] LABS: BILIRUBIN,TOTAL 0.3 mg/dL (0.2-1); TOT PROT 6.7 g/dl (6.4-8.2)
[2023-12-08 10:42] LABS: ALK PHOS 82 U/L (45-117)
[2023-12-08] MEDS: PALONOSETRON HCL 0.25 MG/5 ML VIAL IVPUSH ONE (11:33)
[2023-12-08] MEDS: DEXAMETHASONE SODIUM PHOSPHATE 10 MG in SODIUM CHLORIDE 50 ML IVPB ONE (11:37)
[2023-12-08] MEDS: DEXTROSE 5% IVPB ONE (12:08)
[2023-12-08] MEDS: [UNRECOGNIZED DRUG - OTHER] IVPB ONE (12:08)
[2023-12-08] MEDS: WATER IVPB ONE (12:08)
[2023-12-08] MEDS: PORTA CATH FLUSH 10 ML IVPUSH PRN (14:10)
[2023-12-08 15:45] VITALS: TEMP 98.6
[2023-12-08 15:51] VITALS: BP 127/75; PULSE 63; RESP 18
== END 2023-12-08 14:15 | disposition home or self-care (01) ==
LOC: JONCCHEMO 10:55 → J7W 10:56 → JONCCHEMO 14:15
PROVIDERS: ATTEND Student in an Organized Health Care Education/Training Program
PROC: 3E04305 Introduction of Other Antineoplastic into Central Vein, Percutaneous Approach (ICD-10-PCS; principal; 2023-12-08)
PROC: 3E043GC Introduction of Other Therapeutic Substance into Central Vein, Percutaneous Approach (ICD-10-PCS; 2023-12-08)
DX: Z51.11 Encounter for antineoplastic chemotherapy (principal); C50.411 Malignant neoplasm of upper-outer quadrant of right female breast; Z17.0 Estrogen receptor positive status [ER+]
CPT/HCPCS: 36415; 80048; 80076; 84702; 85025; 96367; 96413; 96415; J9358

== ENCOUNTER 2023-12-29 09:03 | Day surgery (SDC) | payer OTHER ==
[2023-12-29 09:31] LABS: BASO % 1.1 % (0-2.0); EOS % 3.7 % (0-4.5); HEMATOCRIT 35.4 % (32.4-45.2); HEMOGLOBIN 12.3 GM/dL (10.7-15.3); LYMPH % 47.6 % (8-40); MCHC 34.8 g/dl (32.0-36.0); MEAN CELL VOLUME 86.1 fl (80-96); MONO % 10.6 % (3.8-10.2); PLATELET COUNT 252 10^3/uL (134-434); RBC 4.11 M/mm3 (3.60-5.2); RDW 13.5 % (11.6-15.6); WHITE BLOOD COUNT 3.3 K/mm3 (4.0-10.0)
[2023-12-29 09:52] LABS: POTASSIUM 4.1 mmol/L (3.5-5.1)
[2023-12-29 09:53] VITALS: RESP 18; TEMP 98.9
[2023-12-29 09:55] LABS: ALBUMIN 3.3 g/dl (3.4-5.0)
[2023-12-29 09:56] LABS: BLOOD UREA NITROGEN 13.7 mg/dL (7-18)
[2023-12-29 09:58] LABS: BILIRUBIN,DIRECT 0.1 mg/dL (0.0-0.2); CREATININE 0.8 mg/dL (0.55-1.3)
[2023-12-29 09:59] LABS: BILIRUBIN,TOTAL 0.3 mg/dL (0.2-1)
[2023-12-29 10:00] LABS: TOT PROT 6.8 g/dl (6.4-8.2)
[2023-12-29] MEDS: DEXAMETHASONE SODIUM PHOSPHATE 10 MG in DEXTROSE 5%-WATER - 50 ML IVPB ONE (10:49)
[2023-12-29] MEDS: PALONOSETRON HCL 0.25 MG/5 ML VIAL IVPUSH ONE (11:00)
[2023-12-29] MEDS: WATER IVPB ONE (11:19)
[2023-12-29] MEDS: DEXTROSE 5% IVPB ONE (11:19)
[2023-12-29] MEDS: [UNRECOGNIZED DRUG - OTHER] IVPB ONE (11:19)
[2023-12-29] MEDS: PORTA CATH FLUSH 10 ML IVPUSH PRN (11:55)
[2023-12-29 12:25] VITALS: BP 133/84; PULSE 58
== END 2023-12-29 12:15 | disposition home or self-care (01) ==
LOC: JONCCHEMO 09:03 → J7W 09:04 → JONCCHEMO 12:15
PROVIDERS: ATTEND Student in an Organized Health Care Education/Training Program
DX: Z51.11 Encounter for antineoplastic chemotherapy (principal); C50.411 Malignant neoplasm of upper-outer quadrant of right female breast; Z17.0 Estrogen receptor positive status [ER+]
CPT/HCPCS: 36415; 80048; 80076; 85025; 96375; 96413; J9358

== ENCOUNTER 2024-01-19 09:16 | Day surgery (SDC) | payer OTHER ==
[2024-01-19 09:28] LABS: BASO % 1.1 % (0-2.0); EOS % 3.2 % (0-4.5); HEMOGLOBIN 12.3 GM/dL (10.7-15.3); LYMPH % 45.2 % (8-40); MCH 29.4 pg (25.7-33.7); MCHC 34.1 g/dl (32.0-36.0); MEAN CELL VOLUME 86.1 fl (80-96); MEAN PLT VOLUME 7.4 fl (7.5-11.1); MONO % 11.6 % (3.8-10.2); NEUT % 38.9 % (42.8-82.8); PLATELET COUNT 288 10^3/uL (134-434); RBC 4.18 M/mm3 (3.60-5.2); RDW 14.7 % (11.6-15.6)
[2024-01-19 09:59] LABS: CHLORIDE 106 mmol/L (98-107); POTASSIUM 4.1 mmol/L (3.5-5.1); SODIUM 141 mmol/L (136-145)
[2024-01-19 10:01] LABS: CALCIUM 9.4 mg/dL (8.5-10.1)
[2024-01-19 10:02] LABS: ALBUMIN 3.3 g/dl (3.4-5.0); ANION GAP 5 mmol/L (4-13); CO2 29 mmol/L (21-32); GLUCOSE,RANDOM 96 mg/dL (74-106)
[2024-01-19 10:04] LABS: BILIRUBIN,DIRECT 0.1 mg/dL (0.0-0.2)
[2024-01-19 10:05] LABS: CREATININE 0.8 mg/dL (0.55-1.3); SGOT/AST 22 U/L (15-37); SGPT/ALT 20 U/L (13-61)
[2024-01-19 10:06] LABS: BILIRUBIN,TOTAL 0.2 mg/dL (0.2-1); TOT PROT 6.8 g/dl (6.4-8.2)
[2024-01-19 10:08] LABS: ALK PHOS 86 U/L (45-117)
[2024-01-19] MEDS: DEXAMETHASONE SODIUM PHOSPHATE 10 MG in DEXTROSE 5%-WATER - 50 ML IVPB ONE (10:55)
[2024-01-19] MEDS: PALONOSETRON HCL 0.25 MG/5 ML VIAL IVPUSH ONE (10:56)
[2024-01-19] MEDS: DEXTROSE 5% IVPB ONE (11:31)
[2024-01-19] MEDS: [UNRECOGNIZED DRUG - OTHER] IVPB ONE (11:31)
[2024-01-19] MEDS: WATER IVPB ONE (11:31)
[2024-01-19] MEDS: PORTA CATH FLUSH 10 ML IVPUSH PRN (12:15)
[2024-01-19 15:49] VITALS: BP 134/85; PULSE 75; RESP 20; TEMP 97.5
== END 2024-01-19 12:30 | disposition home or self-care (01) ==
LOC: JONCCHEMO 09:16 → J7W 09:18 → JONCCHEMO 12:30
PROVIDERS: ATTEND Student in an Organized Health Care Education/Training Program
DX: Z51.11 Encounter for antineoplastic chemotherapy (principal); C50.911 Malignant neoplasm of unspecified site of right female breast
CPT/HCPCS: 36415; 80048; 80076; 85025; 96375; 96413; J9358

== ENCOUNTER 2024-02-09 09:34 | Day surgery (SDC) | payer OTHER ==
[2024-02-09 10:00] LABS: BASO % 1.1 % (0-2.0); EOS % 5.5 % (0-4.5); HEMATOCRIT 35.9 % (32.4-45.2); HEMOGLOBIN 12.1 GM/dL (10.7-15.3); LYMPH % 31.1 % (8-40); MCH 29.8 pg (25.7-33.7); MCHC 33.6 g/dl (32.0-36.0); MEAN CELL VOLUME 88.8 fl (80-96); MEAN PLT VOLUME 7.9 fl (7.5-11.1); MONO % 17.7 % (3.8-10.2); NEUT % 44.6 % (42.8-82.8); PLATELET COUNT 259 10^3/uL (134-434); RBC 4.05 M/mm3 (3.60-5.2); RDW 15.6 % (11.6-15.6); WHITE BLOOD COUNT 3.5 K/mm3 (4.0-10.0)
[2024-02-09 10:24] LABS: CHLORIDE 103 mmol/L (98-107); POTASSIUM 3.7 mmol/L (3.5-5.1); SODIUM 140 mmol/L (136-145)
[2024-02-09 10:26] LABS: ALBUMIN 3.3 g/dl (3.4-5.0); ANION GAP 6 mmol/L (4-13); CALCIUM 9.6 mg/dL (8.5-10.1); CO2 31 mmol/L (21-32)
[2024-02-09 10:27] LABS: GLUCOSE,RANDOM 89 mg/dL (74-106)
[2024-02-09 10:29] LABS: BILIRUBIN,DIRECT 0.1 mg/dL (0.0-0.2); CREATININE 0.9 mg/dL (0.55-1.3); SGOT/AST 22 U/L (15-37); SGPT/ALT 23 U/L (13-61)
[2024-02-09 10:31] LABS: BILIRUBIN,TOTAL 0.2 mg/dL (0.2-1); TOT PROT 7.1 g/dl (6.4-8.2)
[2024-02-09 10:32] LABS: ALK PHOS 86 U/L (45-117)
[2024-02-09] MEDS: DEXAMETHASONE SODIUM PHOSPHATE 10 MG in SODIUM CHLORIDE 50 ML IVPB ONE (11:17)
[2024-02-09] MEDS: PALONOSETRON HCL 0.25 MG/5 ML VIAL IVPUSH ONE (11:18)
[2024-02-09] MEDS: WATER IVPB ONE (11:33)
[2024-02-09] MEDS: DEXTROSE 5% IVPB ONE (11:33)
[2024-02-09] MEDS: [UNRECOGNIZED DRUG - OTHER] IVPB ONE (11:33)
[2024-02-09] MEDS: PORTA CATH FLUSH 10 ML IVPUSH PRN (12:20)
[2024-02-09 15:44] VITALS: BP 127/99; PULSE 83; RESP 18; TEMP 97.8
== END 2024-02-09 12:44 | disposition home or self-care (01) ==
LOC: JONCCHEMO 09:34 → J7W 09:35 → JONCCHEMO 12:44
PROVIDERS: ATTEND Student in an Organized Health Care Education/Training Program
DX: Z51.11 Encounter for antineoplastic chemotherapy (principal); C50.411 Malignant neoplasm of upper-outer quadrant of right female breast
CPT/HCPCS: 36415; 80048; 80076; 85025; 96375; 96413; J9358

== ENCOUNTER 2024-03-01 09:55 | Day surgery (SDC) | payer OTHER ==
[2024-03-01 09:59] LABS: BASO % 1.7 % (0-2.0); EOS % 4.9 % (0-4.5); LYMPH % 41.3 % (8-40); MCH 30.5 pg (25.7-33.7); MCHC 34.3 g/dl (32.0-36.0); MEAN CELL VOLUME 88.8 fl (80-96); MEAN PLT VOLUME 8.1 fl (7.5-11.1); MONO % 11.5 % (3.8-10.2); NEUT % 40.6 % (42.8-82.8); PLATELET COUNT 247 10^3/uL (134-434); RBC 3.94 M/mm3 (3.60-5.2); RDW 16.6 % (11.6-15.6); WHITE BLOOD COUNT 3.4 K/mm3 (4.0-10.0)
[2024-03-01 10:23] LABS: CHLORIDE 108 mmol/L (98-107); POTASSIUM 3.9 mmol/L (3.5-5.1); SODIUM 140 mmol/L (136-145)
[2024-03-01 10:25] LABS: ALBUMIN 3.2 g/dl (3.4-5.0); ANION GAP 6 mmol/L (4-13); CALCIUM 9.4 mg/dL (8.5-10.1); CO2 26 mmol/L (21-32); GLUCOSE,RANDOM 80 mg/dL (74-106)
[2024-03-01 10:26] LABS: BLOOD UREA NITROGEN 13.2 mg/dL (7-18)
[2024-03-01 10:28] LABS: BILIRUBIN,DIRECT 0.1 mg/dL (0.0-0.2); CREATININE 0.8 mg/dL (0.55-1.3); SGOT/AST 24 U/L (15-37); SGPT/ALT 21 U/L (13-61)
[2024-03-01 10:30] LABS: BILIRUBIN,TOTAL 0.3 mg/dL (0.2-1); TOT PROT 6.9 g/dl (6.4-8.2)
[2024-03-01 10:31] LABS: ALK PHOS 83 U/L (45-117)
[2024-03-01] MEDS: PALONOSETRON HCL 0.25 MG/5 ML VIAL IVPUSH ONE (10:34)
[2024-03-01] MEDS: DEXAMETHASONE SODIUM PHOSPHATE 10 MG in SODIUM CHLORIDE 50 ML IVPB ONE (10:42)
[2024-03-01] MEDS: WATER IVPB ONE (11:04)
[2024-03-01] MEDS: [UNRECOGNIZED DRUG - OTHER] IVPB ONE (11:04)
[2024-03-01] MEDS: DEXTROSE 5% IVPB ONE (11:04)
[2024-03-01] MEDS: PORTA CATH FLUSH 10 ML IVPUSH PRN (12:00)
[2024-03-01 14:14] VITALS: BP 127/89; PULSE 77; RESP 20; TEMP 98.6
== END 2024-03-01 12:10 | disposition home or self-care (01) ==
LOC: JONCCHEMO 09:55 → J7W 09:56 → JONCCHEMO 12:10
PROVIDERS: ATTEND Student in an Organized Health Care Education/Training Program
DX: Z51.11 Encounter for antineoplastic chemotherapy (principal); C50.911 Malignant neoplasm of unspecified site of right female breast
CPT/HCPCS: 36415; 80048; 80076; 85025; 96367; 96375; 96413; J9358

== ENCOUNTER 2024-03-06 11:02 | Emergency (ER) | payer OTHER ==
[2024-03-06 11:10] VITALS: BP 142/94; PULSE 82; RESP 20; TEMP 98; BMI 30.2
[2024-03-06] MEDS: HYDROCORTISONE ACETATE 25 MG/SUPP.RECT PR ONE (12:34)
== END 2024-03-06 13:24 | disposition home or self-care (01) ==
LOC: JERFT 11:02
DX: K64.4 Residual hemorrhoidal skin tags (principal)
CPT/HCPCS: 99283-25

== ENCOUNTER 2024-05-10 09:17 | Day surgery (SDC) | payer OTHER ==
[2024-05-10 10:32] LABS: BASO % 1.2 % (0-2.0); EOS % 3.2 % (0-4.5); HEMATOCRIT 36.3 % (32.4-45.2); HEMOGLOBIN 12.5 GM/dL (10.7-15.3); LYMPH % 42.2 % (8-40); MCH 31.7 pg (25.7-33.7); MCHC 34.5 g/dl (32.0-36.0); MEAN CELL VOLUME 91.8 fl (80-96); MEAN PLT VOLUME 9.3 fl (7.5-11.1); MONO % 8.7 % (3.8-10.2); NEUT % 44.7 % (42.8-82.8); PLATELET COUNT 213 10^3/uL (134-434); RBC 3.95 M/mm3 (3.60-5.2); RDW 16.2 % (11.6-15.6); WHITE BLOOD COUNT 3.6 K/mm3 (4.0-10.0)
[2024-05-10 10:50] LABS: CHLORIDE 107 mmol/L (98-107); SODIUM 140 mmol/L (136-145)
[2024-05-10 10:52] LABS: ANION GAP 7 mmol/L (4-13); BLOOD UREA NITROGEN 17.2 mg/dL (7-18); CO2 27 mmol/L (21-32); GLUCOSE,RANDOM 102 mg/dL (74-106)
[2024-05-10 10:54] LABS: ALBUMIN 3.2 g/dl (3.4-5.0)
[2024-05-10 10:55] LABS: BILIRUBIN,DIRECT 0.1 mg/dL (0.0-0.2); CREATININE 0.8 mg/dL (0.55-1.3); SGOT/AST 30 U/L (15-37); SGPT/ALT 22 U/L (13-61)
[2024-05-10 10:57] LABS: BILIRUBIN,TOTAL 0.2 mg/dL (0.2-1)
[2024-05-10 10:58] LABS: ALK PHOS 91 U/L (45-117)
[2024-05-10] MEDS: DEXAMETHASONE SODIUM PHOSPHATE 10 MG in SODIUM CHLORIDE 50 ML IVPB ONE (11:07)
[2024-05-10] MEDS: PALONOSETRON HCL 0.25 MG/5 ML VIAL IVPUSH ONE (11:35)
[2024-05-10] MEDS: FOSAPREPITANT DIMEGLUMINE 150 MG in SODIUM CHLORIDE 145 ML IVPB ONE (11:40)
[2024-05-10] MEDS: [UNRECOGNIZED DRUG - OTHER] IVPB ONE (12:22)
[2024-05-10] MEDS: WATER IVPB ONE (12:22)
[2024-05-10] MEDS: DEXTROSE 5% IVPB ONE (12:22)
[2024-05-10] MEDS: PORTA CATH FLUSH 10 ML IVPUSH PRN (13:00)
[2024-05-10 13:48] VITALS: TEMP 98.5
[2024-05-10 14:06] VITALS: BP 131/85; PULSE 71; RESP 16
== END 2024-05-10 13:00 | disposition home or self-care (01) ==
LOC: JONCCHEMO 09:17 → J7W 09:21 → JONCCHEMO 13:00
PROVIDERS: ATTEND Internal Medicine Hematology & Oncology
PROC: 3E04305 Introduction of Other Antineoplastic into Central Vein, Percutaneous Approach (ICD-10-PCS; principal; 2024-05-10)
PROC: 3E043GC Introduction of Other Therapeutic Substance into Central Vein, Percutaneous Approach (ICD-10-PCS; 2024-05-10)
DX: Z51.11 Encounter for antineoplastic chemotherapy (principal); C50.411 Malignant neoplasm of upper-outer quadrant of right female breast; Z17.0 Estrogen receptor positive status [ER+]
CPT/HCPCS: 36415; 80048; 80076; 85025; 96366; 96367; 96413; J1453; J9358

== ENCOUNTER 2024-05-31 09:00 | Day surgery (SDC) | payer OTHER ==
[2024-05-31 10:00] LABS: BASOPHILS # 0.05 x10^3/uL (0.01-0.08); EOSINOPHILS # 0.14 x10^3/uL (0.04-0.36); HEMATOCRIT 35.5 % (34.1-44.9); HEMOGLOBIN 11.7 g/dL (11.2-15.7); MEAN CELL VOLUME 93.4 fl (79.4-94.8); MEAN PLT VOLUME 10.4 fl (9.4-12.3); MONOCYTE # 0.48 x10^3/uL (0.24-0.86); MONOCYTE % 13.6 % (4.7-12.5); PLATELET COUNT 232 x10^3/uL (182-369); RDW 14.3 % (12.2-17.1)
[2024-05-31 10:43] LABS: CHLORIDE 103 mmol/L (98-107); POTASSIUM 4.1 mmol/L (3.5-5.1); SODIUM 141 mmol/L (136-145)
[2024-05-31 10:45] LABS: ALBUMIN 3.2 g/dl (3.4-5.0); CALCIUM 9.1 mg/dL (8.5-10.1)
[2024-05-31 10:46] LABS: ANION GAP 8 mmol/L (4-13); BLOOD UREA NITROGEN 14.6 mg/dL (7-18); CO2 30 mmol/L (21-32); GLUCOSE,RANDOM 90 mg/dL (74-106)
[2024-05-31 10:48] LABS: BILIRUBIN,DIRECT 0.1 mg/dL (0.0-0.2); SGPT/ALT 23 U/L (13-61)
[2024-05-31 10:49] LABS: CREATININE 0.8 mg/dL (0.55-1.3); SGOT/AST 27 U/L (15-37)
[2024-05-31 10:50] LABS: BILIRUBIN,TOTAL 0.3 mg/dL (0.2-1); TOT PROT 6.9 g/dl (6.4-8.2)
[2024-05-31 10:51] LABS: ALK PHOS 87 U/L (45-117)
[2024-05-31] MEDS: FOSAPREPITANT DIMEGLUMINE 150 MG in SODIUM CHLORIDE 145 ML IVPB ONE (11:12)
[2024-05-31] MEDS: DEXAMETHASONE SODIUM PHOSPHATE 10 MG in SODIUM CHLORIDE 50 ML IVPB ONE (11:45)
[2024-05-31] MEDS: PALONOSETRON HCL 0.25 MG/5 ML VIAL IVPUSH ONE (11:58)
[2024-05-31] MEDS: DEXTROSE 5% IVPB ONE (12:00)
[2024-05-31] MEDS: [UNRECOGNIZED DRUG - OTHER] IVPB ONE (12:00)
[2024-05-31] MEDS: WATER IVPB ONE (12:00)
[2024-05-31 14:45] VITALS: TEMP 98.8
[2024-05-31 14:53] VITALS: BP 152/95; PULSE 58; RESP 18
[2024-05-31] MEDS ORDERED: PORTA CATH FLUSH 10 ML IVPUSH PRN (14:53)
== END 2024-05-31 12:40 | disposition home or self-care (01) ==
LOC: JONCCHEMO 09:00
PROVIDERS: ATTEND Internal Medicine Hematology & Oncology
PROC: 3E04305 Introduction of Other Antineoplastic into Central Vein, Percutaneous Approach (ICD-10-PCS; principal; 2024-05-31)
PROC: 3E043GC Introduction of Other Therapeutic Substance into Central Vein, Percutaneous Approach (ICD-10-PCS; 2024-05-31)
DX: Z51.11 Encounter for antineoplastic chemotherapy (principal); C50.411 Malignant neoplasm of upper-outer quadrant of right female breast; Z17.0 Estrogen receptor positive status [ER+]
CPT/HCPCS: 36415; 80048; 80076; 85025; 96375; 96413; J1453; J9358

== ENCOUNTER 2024-07-12 09:19 | Day surgery (SDC) | payer OTHER ==
[2024-07-12 09:40] LABS: ABSOLUTE IMMATURE GRANULOCYTES 0.01 x10^3/uL (0.0-0.031); BASOPHILS # 0.03 x10^3/uL (0.01-0.08); EOSINOPHILS # 0.06 x10^3/uL (0.04-0.36); HEMATOCRIT 37.8 % (34.1-44.9); HEMOGLOBIN 12.2 g/dL (11.2-15.7); MCHC 32.3 g/dl (32.2-35.5); MEAN CELL VOLUME 93.8 fl (79.4-94.8); MEAN PLT VOLUME 10.3 fl (9.4-12.3); MONOCYTE # 0.41 x10^3/uL (0.24-0.86); MONOCYTE % 13.8 % (4.7-12.5); PLATELET COUNT 203 x10^3/uL (182-369); RDW 14.3 % (12.2-17.1)
[2024-07-12 10:02] LABS: CHLORIDE 106 mmol/L (98-107); POTASSIUM 4.1 mmol/L (3.5-5.1); SODIUM 141 mmol/L (136-145)
[2024-07-12 10:03] LABS: BLOOD UREA NITROGEN 11.7 mg/dL (7-18); CALCIUM 9.1 mg/dL (8.5-10.1)
[2024-07-12 10:04] LABS: ALBUMIN 3.3 g/dl (3.4-5.0); ANION GAP 6 mmol/L (4-13); CO2 28 mmol/L (21-32); GLUCOSE,RANDOM 69 mg/dL (74-106)
[2024-07-12 10:07] LABS: BILIRUBIN,DIRECT 0.1 mg/dL (0.0-0.2); SGOT/AST 34 U/L (15-37); SGPT/ALT 30 U/L (13-61)
[2024-07-12 10:08] LABS: BILIRUBIN,TOTAL 0.5 mg/dL (0.2-1)
[2024-07-12 10:09] LABS: ALK PHOS 97 U/L (45-117)
[2024-07-12] MEDS: FOSAPREPITANT DIMEGLUMINE 150 MG in SODIUM CHLORIDE 145 ML IVPB ONE (10:45)
[2024-07-12] MEDS: DEXAMETHASONE SODIUM PHOSPHATE 10 MG in SODIUM CHLORIDE 50 ML IVPB ONE (11:29)
[2024-07-12] MEDS: PALONOSETRON HCL 0.25 MG/5 ML VIAL IVPUSH ONE (11:29)
[2024-07-12] MEDS: WATER IVPB ONE (11:48)
[2024-07-12] MEDS: [UNRECOGNIZED DRUG - OTHER] IVPB ONE (11:48)
[2024-07-12] MEDS: DEXTROSE 5% IVPB ONE (11:48)
[2024-07-12 15:57] VITALS: BP 121/89; PULSE 85; RESP 16; TEMP 98.5
[2024-07-12] MEDS ORDERED: PORTA CATH FLUSH 10 ML IVPUSH PRN (16:13)
== END 2024-07-12 12:30 | disposition home or self-care (01) ==
LOC: JONCCHEMO 09:19
PROVIDERS: ATTEND Internal Medicine Hematology & Oncology
PROC: 3E04305 Introduction of Other Antineoplastic into Central Vein, Percutaneous Approach (ICD-10-PCS; principal; 2024-07-12)
PROC: 3E043GC Introduction of Other Therapeutic Substance into Central Vein, Percutaneous Approach (ICD-10-PCS; 2024-07-12)
DX: Z51.11 Encounter for antineoplastic chemotherapy (principal); C50.411 Malignant neoplasm of upper-outer quadrant of right female breast; Z17.0 Estrogen receptor positive status [ER+]
CPT/HCPCS: 36415; 80048; 80076; 85025; 96374; 96375; 96413; J1453; J9358

== ENCOUNTER 2024-08-02 09:15 | Day surgery (SDC) | payer OTHER ==
[2024-08-02 09:20] LABS: RDW 14.1 % (12.2-17.1)
[2024-08-02 09:21] LABS: HEMATOCRIT 35.6 % (34.1-44.9); MCHC 33.7 g/dl (32.2-35.5); PLATELET COUNT 239 x10^3/uL (182-369)
[2024-08-02 09:53] LABS: CHLORIDE 106 mmol/L (98-107); SODIUM 142 mmol/L (136-145)
[2024-08-02 09:55] LABS: BLOOD UREA NITROGEN 10.7 mg/dL (7-18); CALCIUM 9.6 mg/dL (8.5-10.1)
[2024-08-02 09:56] LABS: ALBUMIN 3.3 g/dl (3.4-5.0); ANION GAP 8 mmol/L (4-13); CO2 28 mmol/L (21-32); GLUCOSE,RANDOM 95 mg/dL (74-106)
[2024-08-02 09:58] LABS: BILIRUBIN,DIRECT 0.1 mg/dL (0.0-0.2)
[2024-08-02 09:59] LABS: CREATININE 0.8 mg/dL (0.55-1.3); SGOT/AST 28 U/L (15-37); SGPT/ALT 27 U/L (13-61)
[2024-08-02 10:00] LABS: BILIRUBIN,TOTAL 0.3 mg/dL (0.2-1)
[2024-08-02 10:01] LABS: ALK PHOS 107 U/L (45-117)
[2024-08-02] MEDS: FOSAPREPITANT DIMEGLUMINE 150 MG in SODIUM CHLORIDE 145 ML IVPB ONE (10:36)
[2024-08-02] MEDS: DEXAMETHASONE SODIUM PHOSPHATE 10 MG in SODIUM CHLORIDE 50 ML IVPB ONE (11:06)
[2024-08-02] MEDS: PALONOSETRON HCL 0.25 MG/5 ML VIAL IVPUSH ONE (11:06)
[2024-08-02] MEDS: [UNRECOGNIZED DRUG - OTHER] IVPB ONE (11:34)
[2024-08-02] MEDS: WATER IVPB ONE (11:34)
[2024-08-02] MEDS: DEXTROSE 5% IVPB ONE (11:34)
[2024-08-02 11:45] VITALS: TEMP 98.4
[2024-08-02] MEDS: PORTA CATH FLUSH 10 ML IVPUSH PRN (12:20)
[2024-08-02 14:05] VITALS: BP 142/95; PULSE 63; RESP 18
== END 2024-08-02 12:30 | disposition home or self-care (01) ==
LOC: JONCCHEMO 09:15
PROVIDERS: ATTEND Internal Medicine Hematology & Oncology
DX: Z51.11 Encounter for antineoplastic chemotherapy (principal); C50.411 Malignant neoplasm of upper-outer quadrant of right female breast
CPT/HCPCS: 36415; 80048; 80076; 85025; 96375; 96413; J1453; J9358

== ENCOUNTER 2024-08-23 10:18 | Day surgery (SDC) | payer OTHER ==
[2024-08-23 11:37] LABS: HEMATOCRIT 37.4 % (34.1-44.9); HEMOGLOBIN 12.4 g/dL (11.2-15.7); MCHC 33.2 g/dl (32.2-35.5)
[2024-08-23 11:39] LABS: MEAN CELL VOLUME 93.5 fl (79.4-94.8); MEAN PLT VOLUME 11.1 fl (9.4-12.3); PLATELET COUNT 124 x10^3/uL (182-369); RDW 14.3 % (12.2-17.1)
[2024-08-23 11:58] LABS: CHLORIDE 108 mmol/L (98-107); POTASSIUM 5.9 mmol/L (3.5-5.1); SODIUM 140 mmol/L (136-145)
[2024-08-23 12:00] LABS: ALBUMIN 3.3 g/dl (3.4-5.0); ANION GAP 2 mmol/L (4-13); BLOOD UREA NITROGEN 11.8 mg/dL (7-18); CALCIUM 9.8 mg/dL (8.5-10.1); CO2 29 mmol/L (21-32)
[2024-08-23 12:01] LABS: GLUCOSE,RANDOM 91 mg/dL (74-106)
[2024-08-23 12:03] LABS: BILIRUBIN,DIRECT < 0.1 mg/dL (0.0-0.2); CREATININE 0.7 mg/dL (0.55-1.3); SGOT/AST 56 U/L (15-37); SGPT/ALT 32 U/L (13-61)
[2024-08-23 12:05] LABS: BILIRUBIN,TOTAL 0.3 mg/dL (0.2-1); TOT PROT 6.9 g/dl (6.4-8.2)
[2024-08-23 12:06] LABS: ALK PHOS 101 U/L (45-117)
[2024-08-23] MEDS: FOSAPREPITANT DIMEGLUMINE 150 MG in SODIUM CHLORIDE 145 ML IVPB ONE (12:33)
[2024-08-23] MEDS: DEXAMETHASONE SODIUM PHOSPHATE 10 MG in SODIUM CHLORIDE 50 ML IVPB ONE (13:11)
[2024-08-23] MEDS: PALONOSETRON HCL 0.25 MG/5 ML VIAL IVPUSH ONE (14:04)
[2024-08-23] MEDS: DEXTROSE 5% IVPB ONE (14:05)
[2024-08-23] MEDS: WATER IVPB ONE (14:05)
[2024-08-23] MEDS: [UNRECOGNIZED DRUG - OTHER] IVPB ONE (14:05)
[2024-08-23] MEDS: PORTA CATH FLUSH 10 ML IVPUSH PRN (14:35)
[2024-08-23 16:08] VITALS: RESP 16; TEMP 97.9
[2024-08-23 16:20] VITALS: BP 120/78; PULSE 76
== END 2024-08-23 14:45 | disposition home or self-care (01) ==
LOC: JONCCHEMO 10:18 → J7W 10:19 → JONCCHEMO 14:45
PROVIDERS: ATTEND Internal Medicine Hematology & Oncology
DX: Z51.11 Encounter for antineoplastic chemotherapy (principal); C50.919 Malignant neoplasm of unspecified site of unspecified female breast
CPT/HCPCS: 36415; 80048; 80076; 85025; J1453; J9358

== ENCOUNTER 2024-10-04 10:10 | Day surgery (SDC) | payer OTHER ==
[2024-10-04 10:47] LABS: MCHC 33.9 g/dl (32.2-35.5); MEAN CELL VOLUME 92.2 fl (79.4-94.8); MEAN PLT VOLUME 10.4 fl (9.4-12.3); RDW 14.4 % (12.2-17.1)
[2024-10-04 11:20] LABS: CO2 27 mmol/L (21-32); GLUCOSE,RANDOM 105 mg/dL (74-106)
[2024-10-04 11:23] LABS: CREATININE 0.7 mg/dL (0.55-1.3); SGOT/AST 28 U/L (15-37); SGPT/ALT 27 U/L (13-61)
[2024-10-04 11:25] LABS: TOT PROT 6.8 g/dl (6.4-8.2)
[2024-10-04 11:26] LABS: ALK PHOS 86 U/L (45-117)
[2024-10-04] MEDS: FOSAPREPITANT DIMEGLUMINE 150 MG in SODIUM CHLORIDE 145 ML IVPB ONE (11:49)
[2024-10-04] MEDS: PALONOSETRON HCL 0.25 MG/5 ML VIAL IVPUSH ONE (12:22)
[2024-10-04] MEDS: DEXAMETHASONE SODIUM PHOSPHATE 10 MG in SODIUM CHLORIDE 50 ML IVPB ONE (12:25)
[2024-10-04] MEDS: [UNRECOGNIZED DRUG - OTHER] IVPB ONE (12:49)
[2024-10-04] MEDS: WATER IVPB ONE (12:49)
[2024-10-04] MEDS: DEXTROSE 5% IVPB ONE (12:49)
[2024-10-04] MEDS ORDERED: PORTA CATH FLUSH 10 ML IVPUSH PRN (13:20)
[2024-10-04 16:17] VITALS: TEMP 97.9
[2024-10-04 17:01] VITALS: BP 132/81; PULSE 71; RESP 18
== END 2024-10-04 13:30 | disposition home or self-care (01) ==
LOC: JONCNONCHE 10:10 → JONCCHEMO 10:10 → JONCNONCHE 10:11 → J7W 10:11 → JONCCHEMO 13:30
PROVIDERS: ATTEND Internal Medicine Hematology & Oncology
DX: Z51.11 Encounter for antineoplastic chemotherapy (principal); C50.411 Malignant neoplasm of upper-outer quadrant of right female breast; Z17.0 Estrogen receptor positive status [ER+]
CPT/HCPCS: 36415; 80048; 80076; 85025; 96367; 96375; 96413; J1453; J9358

== ENCOUNTER 2024-10-25 08:19 | Day surgery (SDC) | payer OTHER ==
[2024-10-25 09:11] LABS: MCHC 32.7 g/dl (32.2-35.5); MEAN CELL VOLUME 94.9 fl (79.4-94.8); MEAN PLT VOLUME 10.0 fl (9.4-12.3); RDW 14.1 % (12.2-17.1)
[2024-10-25 09:34] LABS: GLUCOSE,RANDOM 73 mg/dL (74-106); TOT PROT 6.5 g/dl (6.4-8.2)
[2024-10-25 09:35] LABS: CO2 29 mmol/L (21-32)
[2024-10-25 09:37] LABS: ALK PHOS 92 U/L (40-150)
[2024-10-25 09:40] LABS: CREATININE 0.78 mg/dL (0.55-1.3); SGOT/AST 31 U/L (5-34); SGPT/ALT 22 U/L (0-55)
[2024-10-25] MEDS: DEXAMETHASONE SODIUM PHOSPHATE 10 MG in SODIUM CHLORIDE 50 ML IVPB ONE (10:29)
[2024-10-25] MEDS: PALONOSETRON HCL 0.25 MG/5 ML VIAL IVPUSH ONE (11:00)
[2024-10-25] MEDS: FOSAPREPITANT DIMEGLUMINE 150 MG in SODIUM CHLORIDE 145 ML IVPB ONE (11:00)
[2024-10-25] MEDS: DEXTROSE 5% IVPB ONE (11:39)
[2024-10-25] MEDS: [UNRECOGNIZED DRUG - OTHER] IVPB ONE (11:39)
[2024-10-25] MEDS: WATER IVPB ONE (11:39)
[2024-10-25 13:15] VITALS: BP 134/93; PULSE 84; RESP 20; TEMP 98.6
[2024-10-25] MEDS ORDERED: PORTA CATH FLUSH 10 ML IVPUSH PRN (13:15)
[2024-10-29 17:07] LABS: C-ANCA <1:20 titer (Neg:<1:20)
== END 2024-10-25 12:20 | disposition home or self-care (01) ==
LOC: JONCCHEMO 08:19 → J7W 08:30 → JONCCHEMO 12:20
PROVIDERS: ATTEND Internal Medicine Hematology & Oncology
DX: Z51.11 Encounter for antineoplastic chemotherapy (principal); C50.919 Malignant neoplasm of unspecified site of unspecified female breast; Z17.0 Estrogen receptor positive status [ER+]
CPT/HCPCS: 36415; 80048; 80076; 83520; 85025; 86256; 96365; J1453; J9358